=== PATIENT | female | born 1975 | race Caucasian/White ===

== ENCOUNTER 2017-10-14 09:02 | Emergency (ER) | payer MEDICAID ==
[~2017-10-14] VITALS: Ht 162.5 cm; Wt 90.7 kg
[~2017-10-14 09:02] MED LIST: AMOXICILLIN500 M3 PO; AMOXICILLIN500 MG PO; ATIVAN1 MG PO; CIPRO500 MG PO; CIPRODEX 0.3%-7.5 ML OT; CIPROFLOXACIN500 MG PO; CLARITIN10 MG PO; CLINDAMYCIN HC300 MG PO; FLONASE 0.05% 121 EA NAS; HYDROCODONE BIT1 T11 PO; IBU-8800 MG PO; KEFLEX500 MG PO; LEVAQUIN750 M1 PO; MEDROL DOSEPAK4 MG PO; MOTRIN OTC; MOTRIN800 MG PO; NAPROSYN500 MG PO; NKHM; NORCO 325 MG-101 TAB PO; NORCO 325 MG-51 TAB PO; NORCO 5-325 TA1 EACH PO; NORFLEX100 MG PO; ORASONE10 MG PO; PEN-VEE K500 MG PO; PENICILLIN VK500 MG PO; PROAIR RESPICL90 MCG INH; Peridex 473 ML473 ML PO; REGLAN10 MG PO; ROBITUSSIN AC 10 MG/ PO; TORADOL10 MG PO; TRAMADOL HCL50 MG PO; TRIMOX500 MG PO; ULTRAM50 MG PO; VICODIN 5/500 505 MG PO; VICODIN ES 7501 TAB PO; ZITHROMAX Z PA250 MG PO; ZOFRAN ODT4 MG SL; ZOFRAN4 MG PO; ZYRTEC10 MG PO
[2017-10-14 09:05] VITALS: BP 140/86
[2017-10-14] MEDS ORDERED: PENICILLIN VK500 MG PO (09:06)
[2017-10-14] MEDS ORDERED: Peridex 473 ML473 ML PO (09:06)
[2017-10-14] MEDS ORDERED: NAPROSYN500 MG PO (09:06)
== END 2017-10-14 09:10 | disposition home or self-care (01) ==
LOC: ED 09:02
DX: K08.89 Other specified disorders of teeth and supporting structures (principal); R03.0 Elevated blood-pressure reading, without diagnosis of hypertension; F17.200 Nicotine dependence, unspecified, uncomplicated; E66.9 Obesity, unspecified; Z90.49 Acquired absence of other specified parts of digestive tract; Z98.51 Tubal ligation status; Z68.39 Body mass index [BMI] 39.0-39.9, adult; Z79.899 Other long term (current) drug therapy

== ENCOUNTER 2017-11-06 09:38 | Emergency (ER) | payer MEDICAID ==
[~2017-11-06] VITALS: Ht 160 cm; Wt 86.2 kg
[2017-11-06 09:56] LABS: BILIRUBIN NEGATIVE (NEGATIVE); BLOOD 3+ (NEGATIVE); CLARITY CLOUDY (CLEAR); COLOR RED (YELLOW); GLUCOSE NEGATIVE (NEGATIVE); KETONE 2+ (NEGATIVE); NITRITE POSITIVE (NEGATIVE); PH 6.5 (5.0-9.0); SPECIFIC GRAVITY 1.025 (1.005-1.030)
[2017-11-06 10:13] LABS: LEUKO ESTERASE 1+ (NEGATIVE)
[2017-11-06 10:14] LABS: RBC TNTC rbc/hpf (0-2)
[2017-11-06 10:18] LABS: BASO # 0.1 10*3/uL (0.0-0.1); BASO % 0.4 % (0.0-1.0); EOS # 0.1 10*3/uL (0.0-0.4); EOS % 0.7 % (1.0-4.0); HEMATOCRIT 40.5 % (37.0-47.0); HEMOGLOBIN 13.7 g/dl (12.0-16.0); LYMPH # 2.8 10*3/uL (1.3-4.4); LYMPH % 20.4 % (27.0-41.0); MEAN CELL VOLUME 83.9 fl (81.0-99.0); MEAN CORPUSCULAR HGB 28.4 pg (27.0-31.0); MEAN CORPUSCULAR HGB CONC 33.8 g/dl (33.0-37.0); MEAN PLATELET VOLUME 9.9 fl (9.6-12.3); MONO # 0.8 10*3/uL (0.1-1.0); NEUT % 72.1 % (47.0-73.0); PLATELET COUNT AUTOMATED 305 10*3/uL (130-400); RED BLOOD COUNT 4.83 10*6/uL (4.10-5.10); RED CELL DISTRI WIDTH 13.7 % (0-14.5); WHITE BLOOD COUNT 13.8 10*3/uL (4.8-10.8)
[2017-11-06 10:33] LABS: ALBUMIN 3.7 gm/dl (3.1-4.5); ALKALINE PHOSPHATASE 89 U/L (45-117); BUN 15 mg/dl (7-24); CHLORIDE 108 mmol/L (98-107); CREATININE 0.99 mg/dL (0.55-1.02); LIPASE 119 U/L (73-393); POTASSIUM 3.7 mmol/L (3.5-5.1); SGOT/AST 9 IU/L (3-35); SGPT/ALT 17 U/L (12-78); SODIUM 140 mmol/L (136-145); TOTAL PROTEIN 7.2 gm/dL (6.4-8.2)
[2017-11-06 10:44] VITALS: BP 125/78
[2017-11-06] MEDS ORDERED: NORCO 5-325 TA1 EACH PO (12:56)
[2017-11-06] MEDS ORDERED: CIPRO500 MG PO (12:56)
== END 2017-11-06 13:21 | disposition home or self-care (01) ==
LOC: ED 09:38
PROVIDERS: Physician Assistant
DX: N13.1 Hydronephrosis with ureteral stricture, not elsewhere classified (principal); N23 Unspecified renal colic; F17.200 Nicotine dependence, unspecified, uncomplicated; Z98.51 Tubal ligation status

== ENCOUNTER 2018-01-13 12:37 | Emergency (ER) | payer MEDICAID ==
[~2018-01-13] VITALS: Ht 160 cm; Wt 87.1 kg
[2018-01-13 12:40] VITALS: BP 124/83
[2018-01-13 12:56] LABS: BILIRUBIN NEGATIVE (NEGATIVE); BLOOD 3+ (NEGATIVE); CLARITY CLEAR (CLEAR); COLOR YELLOW (YELLOW); GLUCOSE NEGATIVE (NEGATIVE); KETONE NEGATIVE (NEGATIVE); LEUKO ESTERASE NEGATIVE (NEGATIVE); NITRITE NEGATIVE (NEGATIVE); PH 5.5 (5.0-9.0); SPECIFIC GRAVITY <= 1.005 (1.005-1.030); UROBILINOGEN 0.2 E.U./dl (0.2-1.0)
[2018-01-13 13:07] LABS: BASO # 0.1 10*3/uL (0.0-0.1); BASO % 0.7 % (0.0-1.0); EOS # 0.2 10*3/uL (0.0-0.4); EOS % 2.1 % (1.0-4.0); HEMATOCRIT 41.7 % (37.0-47.0); HEMOGLOBIN 13.9 g/dl (12.0-16.0); LYMPH # 3.3 10*3/uL (1.3-4.4); LYMPH % 30.4 % (27.0-41.0); MEAN CELL VOLUME 85.1 fl (81.0-99.0); MEAN CORPUSCULAR HGB 28.4 pg (27.0-31.0); MEAN CORPUSCULAR HGB CONC 33.3 g/dl (33.0-37.0); MEAN PLATELET VOLUME 9.7 fl (9.6-12.3); MONO % 8.7 % (3.0-9.0); NEUT # 6.3 10*3/uL (2.3-7.9); NEUT % 57.8 % (47.0-73.0); PLATELET COUNT AUTOMATED 309 10*3/uL (130-400); RED CELL DISTRI WIDTH 14.1 % (0-14.5); WHITE BLOOD COUNT 10.9 10*3/uL (4.8-10.8)
[2018-01-13 13:21] LABS: ALBUMIN 3.9 gm/dl (3.1-4.5); ALKALINE PHOSPHATASE 91 U/L (45-117); BUN 13 mg/dl (7-24); CHLORIDE 107 mmol/L (98-107); CREATININE 0.95 mg/dL (0.55-1.02); LIPASE 255 U/L (73-393); SGOT/AST 9 IU/L (3-35); SGPT/ALT 15 U/L (12-78); SODIUM 137 mmol/L (136-145); TOTAL PROTEIN 7.8 gm/dL (6.4-8.2)
[2018-01-13] MEDS ORDERED: FLOMAX0.4 MG PO (13:42)
[2018-01-13] MEDS ORDERED: Motrin,Rufen800 MG PO (13:42)
== END 2018-01-13 13:46 | disposition home or self-care (01) ==
LOC: ED 12:37
PROVIDERS: Physician Assistant
DX: N13.30 Unspecified hydronephrosis (principal); F17.200 Nicotine dependence, unspecified, uncomplicated; Z87.442 Personal history of urinary calculi; Z90.49 Acquired absence of other specified parts of digestive tract; Z98.51 Tubal ligation status

== ENCOUNTER 2018-07-28 12:23 | Emergency (ER) | payer SELFPAY ==
[~2018-07-28] VITALS: Ht 160 cm; Wt 79.8 kg
[~2018-07-28 12:23] MED LIST changes: +FLOMAX0.4 MG PO; +Motrin,Rufen800 MG PO
[2018-07-28 12:24] VITALS: BP 127/83
[2018-07-28] MEDS ORDERED: NAPROSYN500 MG PO (12:28)
[2018-07-28] MEDS ORDERED: Peridex 473 ML473 ML PO (12:28)
[2018-07-28] MEDS ORDERED: PENICILLIN VK500 MG PO (12:28)
[2018-07-28] MEDS ORDERED: ZOFRAN4 MG PO (12:28)
[2018-08-26] MEDS ORDERED: PENICILLIN-VK500 MG PO (12:02)
[2018-08-26] MEDS ORDERED: NAPROSYN500 MG PO (12:02)
[2018-08-26] MEDS ORDERED: TYLENOL325 M1 PO (12:02)
== END 2018-07-28 12:40 | disposition home or self-care (01) ==
LOC: ED 12:23
DX: K02.9 Dental caries, unspecified (principal); R03.0 Elevated blood-pressure reading, without diagnosis of hypertension; E66.9 Obesity, unspecified; F17.200 Nicotine dependence, unspecified, uncomplicated; Z68.30 Body mass index [BMI] 30.0-30.9, adult; Z90.49 Acquired absence of other specified parts of digestive tract

== ENCOUNTER 2020-11-10 13:36 | Emergency (ER) | payer SELFPAY ==
[~2020-11-10] VITALS: Ht 162.5 cm; Wt 88.5 kg
[~2020-11-10 13:36] MED LIST changes: +PENICILLIN-VK500 MG PO; +TYLENOL325 M1 PO
[2020-11-10 14:21] LABS: BASO # 0.1 10*3/uL (0.0-0.1); EOS # 0.4 10*3/uL (0.0-0.4); EOS % 4.8 % (1.0-4.0); HEMATOCRIT 39.7 % (37.0-47.0); LYMPH # 3.4 10*3/uL (1.3-4.4); LYMPH % 36.2 % (27.0-41.0); MEAN CELL VOLUME 84.3 fl (81.0-99.0); MEAN CORPUSCULAR HGB 27.2 pg (27.0-31.0); MEAN CORPUSCULAR HGB CONC 32.2 g/dl (33.0-37.0); MEAN PLATELET VOLUME 9.9 fl (9.6-12.3); MONO # 0.7 10*3/uL (0.1-1.0); MONO % 7.9 % (3.0-9.0); NEUT # 4.6 10*3/uL (2.3-7.9); NEUT % 49.9 % (47.0-73.0); PLATELET COUNT AUTOMATED 387 10*3/uL (130-400); RED BLOOD COUNT 4.71 10*6/uL (4.10-5.10); RED CELL DISTRI WIDTH 14.3 % (0-14.5); WHITE BLOOD COUNT 9.3 10*3/uL (4.8-10.8)
[2020-11-10 14:37] LABS: ALBUMIN 3.5 gm/dl (3.1-4.5); ALKALINE PHOSPHATASE 99 U/L (45-117); BUN 12 mg/dl (7-24); CHLORIDE 108 mmol/L (98-107); LIPASE 95 U/L (73-393); POTASSIUM 3.9 mmol/L (3.5-5.1); SGOT/AST 9 IU/L (3-35); SGPT/ALT 15 U/L (12-78); SODIUM 139 mmol/L (136-145); TOTAL PROTEIN 7.5 gm/dL (6.4-8.2)
[2020-11-10 15:10] LABS: BILIRUBIN Negative (Negative); BLOOD 2+ (Negative); CLARITY Clear (Clear); COLOR Yellow (Yellow); GLUCOSE Negative (Negative); KETONE Negative (Negative); LEUKO ESTERASE Negative (Negative); NITRITE Negative (Negative); PH 7.5 (4.5-8.0)
[2020-11-10 15:23] LABS: BACTERIA TRACE
[2020-11-10 15:48] VITALS: BP 120/70
[2020-11-10] MEDS ORDERED: PYRIDIUM200 M1 PO (16:22)
[2020-11-10] MEDS ORDERED: SEPTDS PO (16:22)
== END 2020-11-10 16:21 | disposition home or self-care (01) ==
LOC: ED 13:36
PROVIDERS: Physician Assistant
DX: N39.0 Urinary tract infection, site not specified (principal); G43.909 Migraine, unspecified, not intractable, without status migrainosus; F17.200 Nicotine dependence, unspecified, uncomplicated; Z90.49 Acquired absence of other specified parts of digestive tract; Z98.51 Tubal ligation status; Z87.442 Personal history of urinary calculi

== ENCOUNTER 2020-12-04 09:47 | Emergency (ER) | payer SELFPAY ==
[~2020-12-04] VITALS: Wt 88.5 kg
[~2020-12-04 09:47] MED LIST changes: +PYRIDIUM200 M1 PO; +SEPTDS PO
[2020-12-04 10:28] LABS: BASO # 0.1 10*3/uL (0.0-0.1); BASO % 0.9 % (0.0-1.0); EOS # 0.6 10*3/uL (0.0-0.4); EOS % 5.1 % (1.0-4.0); HEMATOCRIT 38.3 % (37.0-47.0); LYMPH # 3.5 10*3/uL (1.3-4.4); LYMPH % 31.6 % (27.0-41.0); MEAN CELL VOLUME 84.4 fl (81.0-99.0); MEAN CORPUSCULAR HGB 27.5 pg (27.0-31.0); MEAN CORPUSCULAR HGB CONC 32.6 g/dl (33.0-37.0); MEAN PLATELET VOLUME 9.7 fl (9.6-12.3); MONO # 0.8 10*3/uL (0.1-1.0); MONO % 7.4 % (3.0-9.0); NEUT # 6.1 10*3/uL (2.3-7.9); NEUT % 54.8 % (47.0-73.0); PLATELET COUNT AUTOMATED 399 10*3/uL (130-400); RED BLOOD COUNT 4.54 10*6/uL (4.10-5.10); RED CELL DISTRI WIDTH 14.8 % (0-14.5)
[2020-12-04 10:36] VITALS: BP 128/73
[2020-12-04 10:39] LABS: BUN 13 mg/dl (7-24); CHLORIDE 108 mmol/L (98-107); CREATININE 0.72 mg/dL (0.55-1.02); POTASSIUM 3.8 mmol/L (3.5-5.1); SODIUM 140 mmol/L (136-145)
[2020-12-04 10:51] LABS: ACT PARTIAL THROMBO TIME 26.3 SECONDS (20.0-32.1); INTERNATIONAL NORM RATIO 0.9 (2.0-3.5)
[2020-12-04 11:16] LABS: BILIRUBIN Negative (Negative); BLOOD 2+ (Negative); CLARITY Clear (Clear); COLOR Yellow (Yellow); GLUCOSE Negative (Negative); KETONE Negative (Negative); LEUKO ESTERASE Negative (Negative); NITRITE Negative (Negative); SPECIFIC GRAVITY <= 1.005 (1.001-1.030); UROBILINOGEN 0.2 E.U./dl (0.0-1.0)
[2020-12-04 11:26] LABS: BACTERIA TRACE; RBC 0-2 rbc/hpf (0-2); WBC 0-2 wbc/hpf (0-5)
[2020-12-04] MEDS ORDERED: TYLENOL325 M1 PO (11:37)
[2020-12-04] MEDS ORDERED: NAPROSYN500 MG PO (11:37)
== END 2020-12-04 11:45 | disposition home or self-care (01) ==
LOC: ED 09:47
PROVIDERS: Emergency Medicine
DX: N93.8 Other specified abnormal uterine and vaginal bleeding (principal); G43.909 Migraine, unspecified, not intractable, without status migrainosus; F17.200 Nicotine dependence, unspecified, uncomplicated; Z79.899 Other long term (current) drug therapy; Z90.49 Acquired absence of other specified parts of digestive tract; Z98.51 Tubal ligation status

== ENCOUNTER → 2020-12-15 | Outpatient (CLI) | payer SELFPAY | END | disposition home or self-care (01) | LOC: US 10:00 | PROVIDERS: ATTEND Nurse Practitioner Women's Health | DX: M89.8X8 Other specified disorders of bone, other site (principal) ==

== ENCOUNTER 2021-04-12 18:03 | Inpatient (IN) | payer OTHER ==
[~2021-04-12] VITALS: Ht 160 cm; Wt 76.2 kg
[2021-04-12 18:13] VITALS: BP 128/77
[2021-04-12 18:28] LABS: BASO % 0.2 % (0.0-1.0); EOS # 0.2 10*3/uL (0.0-0.4); EOS % 3.6 % (1.0-4.0); HEMATOCRIT 37.6 % (37.0-47.0); LYMPH # 0.7 10*3/uL (1.3-4.4); LYMPH % 15.6 % (27.0-41.0); MEAN CELL VOLUME 83.2 fl (81.0-99.0); MEAN CORPUSCULAR HGB 28.3 pg (27.0-31.0); MEAN PLATELET VOLUME 9.2 fl (9.6-12.3); MONO # 0.5 10*3/uL (0.1-1.0); NEUT # 3.3 10*3/uL (2.3-7.9); NEUT % 70.4 % (47.0-73.0); PLATELET COUNT AUTOMATED 189 10*3/uL (130-400); RED BLOOD COUNT 4.52 10*6/uL (4.10-5.10); RED CELL DISTRI WIDTH 16.8 % (0-14.5); WHITE BLOOD COUNT 4.7 10*3/uL (4.8-10.8)
[2021-04-12 18:33] VITALS: BP 148/70
[2021-04-12 18:43] LABS: LIPASE 77 U/L (73-393)
[2021-04-12 18:44] LABS: ALBUMIN 3.4 gm/dl (3.1-4.5); ALKALINE PHOSPHATASE 80 U/L (45-117); BUN 15 mg/dl (7-24); CHLORIDE 103 mmol/L (98-107); CREATININE 0.57 mg/dL (0.55-1.02); POTASSIUM 3.7 mmol/L (3.5-5.1); SGOT/AST 15 IU/L (3-35); SGPT/ALT 26 U/L (12-78); SODIUM 131 mmol/L (136-145); TOTAL PROTEIN 7.1 gm/dL (6.4-8.2)
[2021-04-12 18:45] LABS: BETA-HCG, QUANT < 1.0 mIU/mL (1-3)
[2021-04-12 18:46] LABS: TROPONIN I < 0.015 ng/ml (<0.045)
[2021-04-13 02:24] VITALS: BP 114/86
[2021-04-13 02:35] VITALS: BP 134/66
[2021-04-13] MEDS ORDERED: Motrin,Rufen800 MG PO (02:57)
[2021-04-13] MEDS ORDERED: ZOFRAN4 MG PO (02:58)
[2021-04-13] MEDS ORDERED: OXYCODONE HCL10 M1 PO (02:58)
[2021-04-13 05:57] LABS: ALBUMIN 3.3 gm/dl (3.1-4.5); ALKALINE PHOSPHATASE 77 U/L (45-117); BUN 14 mg/dl (7-24); CHLORIDE 104 mmol/L (98-107); CREATININE 0.46 mg/dL (0.55-1.02); POTASSIUM 3.6 mmol/L (3.5-5.1); SGOT/AST 6 IU/L (3-35); SGPT/ALT 24 U/L (12-78); SODIUM 132 mmol/L (136-145); TOTAL PROTEIN 6.9 gm/dL (6.4-8.2)
[2021-04-13 06:07] LABS: BASO % 0.6 % (0.0-1.0); EOS # 0.2 10*3/uL (0.0-0.4); HEMATOCRIT 36.2 % (37.0-47.0); LYMPH # 0.8 10*3/uL (1.3-4.4); MEAN CELL VOLUME 86.2 fl (81.0-99.0); MEAN CORPUSCULAR HGB 28.6 pg (27.0-31.0); MEAN CORPUSCULAR HGB CONC 33.1 g/dl (33.0-37.0); MEAN PLATELET VOLUME 9.4 fl (9.6-12.3); MONO # 0.5 10*3/uL (0.1-1.0); NEUT # 3.5 10*3/uL (2.3-7.9); NEUT % 69.2 % (47.0-73.0); PLATELET COUNT AUTOMATED 180 10*3/uL (130-400); RED CELL DISTRI WIDTH 17.2 % (0-14.5)
[2021-04-13 08:00] VITALS: BP 111/69
[2021-04-13 12:00] VITALS: BP 128/73
[2021-04-13 16:00] VITALS: BP 106/68
[2021-04-13 20:00] VITALS: BP 124/70
[2021-04-14] VITALS: BP 112/73
[2021-04-14 08:00] VITALS: BP 112/74
[2021-04-14 12:00] VITALS: BP 109/68
[2021-04-14 16:00] VITALS: BP 100/60
[2021-04-14 20:00] VITALS: BP 113/74
[2021-04-15] VITALS: BP 105/56
[2021-04-15 05:43] LABS: BUN 12 mg/dl (7-24); CHLORIDE 106 mmol/L (98-107); CREATININE 0.46 mg/dL (0.55-1.02); POTASSIUM 3.9 mmol/L (3.5-5.1); SODIUM 137 mmol/L (136-145)
[2021-04-15 06:18] LABS: BASO % 1.1 % (0.0-1.0); EOS # 0.1 10*3/uL (0.0-0.4); EOS % 3.5 % (1.0-4.0); HEMATOCRIT 29.3 % (37.0-47.0); LYMPH # 0.6 10*3/uL (1.3-4.4); LYMPH % 16.3 % (27.0-41.0); MEAN CELL VOLUME 86.4 fl (81.0-99.0); MEAN CORPUSCULAR HGB 28.6 pg (27.0-31.0); MEAN CORPUSCULAR HGB CONC 33.1 g/dl (33.0-37.0); MEAN PLATELET VOLUME 9.7 fl (9.6-12.3); MONO # 0.5 10*3/uL (0.1-1.0); MONO % 13.6 % (3.0-9.0); NEUT # 2.4 10*3/uL (2.3-7.9); PLATELET COUNT AUTOMATED 141 10*3/uL (130-400); RED BLOOD COUNT 3.39 10*6/uL (4.10-5.10); WHITE BLOOD COUNT 3.7 10*3/uL (4.8-10.8)
[2021-04-15 08:00] VITALS: BP 116/69
[2021-04-15 12:00] VITALS: BP 103/42; BP 120/71
[2021-04-15] MEDS ORDERED: XARE15TA PO (20:41)
== END 2021-04-15 17:32 | disposition home or self-care (01) | DRG 134 ==
LOC: ED 18:03 → EDHOLD 04-13 01:11 → 4E 04-13 01:11
PROVIDERS: Emergency Medicine; ADMIT Internal Medicine; ATTEND Internal Medicine
DX: I26.93 Single subsegmental thrombotic pulmonary embolism without acute cor pulmonale (principal); N20.0 Calculus of kidney; N93.8 Other specified abnormal uterine and vaginal bleeding; C53.9 Malignant neoplasm of cervix uteri, unspecified; E66.9 Obesity, unspecified; Z90.49 Acquired absence of other specified parts of digestive tract; Z98.51 Tubal ligation status; Z83.3 Family history of diabetes mellitus; Z82.49 Family history of ischemic heart disease and other diseases of the circulatory system; Z80.1 Family history of malignant neoplasm of trachea, bronchus and lung; Z68.27 Body mass index [BMI] 27.0-27.9, adult; Z92.3 Personal history of irradiation

== ENCOUNTER → 2021-04-24 | Outpatient (CLI) | payer OTHER ==
[~2021-04-24] MED LIST changes: +OXYCODONE HCL10 M1 PO; +PREDNISONE20 M1 PO; +XARE15TA PO; +ZITHROMAX250 MG PO
[2021-04-24 11:18] LABS: BASO % 0.3 % (0.0-1.0); EOS # 0.2 10*3/uL (0.0-0.4); EOS % 4.1 % (1.0-4.0); HEMATOCRIT 33.5 % (37.0-47.0); LYMPH # 0.6 10*3/uL (1.3-4.4); LYMPH % 16.8 % (27.0-41.0); MEAN CELL VOLUME 88.2 fl (81.0-99.0); MEAN CORPUSCULAR HGB 28.9 pg (27.0-31.0); MEAN CORPUSCULAR HGB CONC 32.8 g/dl (33.0-37.0); MEAN PLATELET VOLUME 8.8 fl (9.6-12.3); MONO # 0.4 10*3/uL (0.1-1.0); MONO % 11.4 % (3.0-9.0); NEUT # 2.5 10*3/uL (2.3-7.9); NEUT % 67.1 % (47.0-73.0); PLATELET COUNT AUTOMATED 221 10*3/uL (130-400); RED CELL DISTRI WIDTH 20.8 % (0-14.5); WHITE BLOOD COUNT 3.7 10*3/uL (4.8-10.8)
[2021-04-24 11:43] LABS: ALBUMIN 3.2 gm/dl (3.1-4.5); ALKALINE PHOSPHATASE 93 U/L (45-117); BUN 9 mg/dl (7-24); CHLORIDE 107 mmol/L (98-107); SGOT/AST 6 IU/L (3-35); SGPT/ALT 13 U/L (12-78); SODIUM 137 mmol/L (136-145)
== END | disposition home or self-care (01) ==
LOC: LAB 10:55
PROVIDERS: ATTEND Internal Medicine Hematology & Oncology
DX: C53.9 Malignant neoplasm of cervix uteri, unspecified (principal); I26.99 Other pulmonary embolism without acute cor pulmonale; R51.9 Headache, unspecified

== ENCOUNTER 2021-05-07 13:39 | Inpatient (IN) | payer OTHER ==
[~2021-05-07] VITALS: Ht 160 cm; Wt 77.2 kg
[~2021-05-07 13:39] MED LIST changes: -PREDNISONE20 M1 PO; -ZITHROMAX250 MG PO
[2021-05-07 13:48] VITALS: BP 108/82
[2021-05-07 14:37] LABS: BILIRUBIN Negative (Negative); BLOOD Negative (Negative); CLARITY Cloudy (Clear); COLOR Yellow (Yellow); GLUCOSE Negative (Negative); KETONE Negative (Negative); LEUKO ESTERASE 2+ (Negative); NITRITE Negative (Negative); UROBILINOGEN 0.2 E.U./dl (0.0-1.0)
[2021-05-07 14:41] VITALS: BP 112/79
[2021-05-07 14:48] LABS: BASO # 0.1 10*3/uL (0.0-0.1); BASO % 0.9 % (0.0-1.0); EOS # 0.1 10*3/uL (0.0-0.4); EOS % 2.3 % (1.0-4.0); LYMPH # 0.8 10*3/uL (1.3-4.4); LYMPH % 14.4 % (27.0-41.0); MEAN CELL VOLUME 88.8 fl (81.0-99.0); MEAN CORPUSCULAR HGB 29.8 pg (27.0-31.0); MEAN CORPUSCULAR HGB CONC 33.5 g/dl (33.0-37.0); MEAN PLATELET VOLUME 8.8 fl (9.6-12.3); MONO # 0.8 10*3/uL (0.1-1.0); MONO % 13.6 % (3.0-9.0); NEUT # 3.8 10*3/uL (2.3-7.9); NEUT % 67.9 % (47.0-73.0); PLATELET COUNT AUTOMATED 344 10*3/uL (130-400); RED BLOOD COUNT 3.83 10*6/uL (4.10-5.10); RED CELL DISTRI WIDTH 21.7 % (0-14.5); WHITE BLOOD COUNT 5.6 10*3/uL (4.8-10.8)
[2021-05-07 15:01] LABS: BACTERIA 2+; WBC 31-40 wbc/hpf (0-5)
[2021-05-07 15:03] LABS: ALBUMIN 3.2 gm/dl (3.1-4.5); ALKALINE PHOSPHATASE 83 U/L (45-117); BUN 8 mg/dl (7-24); CHLORIDE 109 mmol/L (98-107); CREATININE 0.58 mg/dL (0.55-1.02); LIPASE 100 U/L (73-393); POTASSIUM 3.7 mmol/L (3.5-5.1); SGOT/AST 7 IU/L (3-35); SGPT/ALT 15 U/L (12-78); SODIUM 136 mmol/L (136-145)
[2021-05-07 15:07] LABS: TROPONIN I < 0.015 ng/ml (<0.045)
[2021-05-07 17:26] VITALS: BP 109/76
[2021-05-07 18:40] VITALS: BP 107/77
[2021-05-08] VITALS: BP 118/70
[2021-05-08 08:20] VITALS: BP 124/73
[2021-05-08 12:00] VITALS: BP 124/62
[2021-05-08 16:08] VITALS: BP 122/70
[2021-05-08 20:00] VITALS: BP 114/61
[2021-05-09] VITALS: BP 132/82
[2021-05-09 08:00] VITALS: BP 119/73
[2021-05-09 12:00] VITALS: BP 129/79
[2021-05-09 16:00] VITALS: BP 128/77
== END 2021-05-09 18:33 | disposition home or self-care (01) | DRG 463 ==
LOC: ED 13:39 → EDHOLD 17:36 → 4E 18:09
PROVIDERS: Internal Medicine; ADMIT Internal Medicine; ATTEND Internal Medicine
DX: N39.0 Urinary tract infection, site not specified (principal); G43.909 Migraine, unspecified, not intractable, without status migrainosus; C53.9 Malignant neoplasm of cervix uteri, unspecified; Z20.822 Contact with and (suspected) exposure to COVID-19; Z90.49 Acquired absence of other specified parts of digestive tract; Z98.51 Tubal ligation status; Z92.3 Personal history of irradiation; Z80.1 Family history of malignant neoplasm of trachea, bronchus and lung; Z83.3 Family history of diabetes mellitus; Z82.49 Family history of ischemic heart disease and other diseases of the circulatory system; Z86.16 Personal history of COVID-19; E66.9 Obesity, unspecified; Z68.30 Body mass index [BMI] 30.0-30.9, adult

== ENCOUNTER 2021-06-04 16:23 | Emergency (ER) | payer OTHER ==
[~2021-06-04] VITALS: Ht 160 cm; Wt 75.7 kg
[2021-06-04 16:37] VITALS: BP 124/74
[2021-06-04] MEDS ORDERED: ZITHROMAX250 MG PO (19:27)
[2021-06-04] MEDS ORDERED: PREDNISONE20 M1 PO (19:27)
== END 2021-06-04 20:16 | disposition home or self-care (01) ==
LOC: ED 16:23
DX: J40 Bronchitis, not specified as acute or chronic (principal); Z20.822 Contact with and (suspected) exposure to COVID-19; F17.200 Nicotine dependence, unspecified, uncomplicated

== ENCOUNTER 2021-08-16 21:07 | Emergency (ER) | payer OTHER ==
[~2021-08-16] VITALS: Ht 160 cm; Wt 78.5 kg
[~2021-08-16 21:07] MED LIST changes: +PREDNISONE20 M1 PO; +ZITHROMAX250 MG PO
[2021-08-16 21:09] VITALS: BP 116/84
[2021-08-16] MEDS ORDERED: NAPROXEN250 MG PO (22:36)
== END 2021-08-16 23:23 | disposition home or self-care (01) ==
LOC: ED 21:07
DX: R10.2 Pelvic and perineal pain (principal); M25.551 Pain in right hip; M54.50 Low back pain, unspecified; F17.200 Nicotine dependence, unspecified, uncomplicated

== ENCOUNTER 2021-08-25 16:13 | Emergency (ER) | payer OTHER ==
[~2021-08-25] VITALS: Ht 162.5 cm; Wt 78.5 kg
[~2021-08-25 16:13] MED LIST changes: +NAPROXEN250 MG PO
[2021-08-25 16:23] VITALS: BP 148/57
[2021-08-25 17:08] LABS: BASO # 0.1 10*3/uL (0.0-0.1); BASO % 0.6 % (0.0-1.0); EOS # 0.4 10*3/uL (0.0-0.4); EOS % 4.3 % (1.0-4.0); LYMPH # 1.4 10*3/uL (1.3-4.4); LYMPH % 13.8 % (27.0-41.0); MEAN CELL VOLUME 89.2 fl (81.0-99.0); MEAN CORPUSCULAR HGB 29.6 pg (27.0-31.0); MEAN CORPUSCULAR HGB CONC 33.2 g/dl (33.0-37.0); MEAN PLATELET VOLUME 9.3 fl (9.6-12.3); MONO # 0.8 10*3/uL (0.1-1.0); NEUT # 7.3 10*3/uL (2.3-7.9); PLATELET COUNT AUTOMATED 390 10*3/uL (130-400); RED BLOOD COUNT 4.15 10*6/uL (4.10-5.10); RED CELL DISTRI WIDTH 13.2 % (0-14.5); WHITE BLOOD COUNT 9.9 10*3/uL (4.8-10.8)
[2021-08-25 17:24] LABS: ALBUMIN 3.2 gm/dl (3.1-4.5); ALKALINE PHOSPHATASE 94 U/L (45-117); BUN 16 mg/dl (7-24); CHLORIDE 109 mmol/L (98-107); POTASSIUM 3.7 mmol/L (3.5-5.1); SGOT/AST 7 IU/L (3-35); SGPT/ALT 14 U/L (12-78); SODIUM 140 mmol/L (136-145); TOTAL PROTEIN 7.4 gm/dL (6.4-8.2)
[2021-08-25 17:26] LABS: B-hCG (QUALITATIVE) NEGATIVE (NEGATIVE)
== END 2021-08-25 19:38 | disposition home or self-care (01) ==
LOC: ED 16:13
PROVIDERS: Physician Assistant
DX: N93.8 Other specified abnormal uterine and vaginal bleeding (principal); Z85.41 Personal history of malignant neoplasm of cervix uteri; Z79.899 Other long term (current) drug therapy; Z90.49 Acquired absence of other specified parts of digestive tract; Z98.51 Tubal ligation status

== ENCOUNTER → 2021-09-25 | Outpatient (CLI) | payer OTHER | END | disposition home or self-care (01) | LOC: CT 10:45 | PROVIDERS: ATTEND Physician Assistant | DX: C53.9 Malignant neoplasm of cervix uteri, unspecified (principal); R10.2 Pelvic and perineal pain ==

== ENCOUNTER 2021-10-10 08:34 | Emergency (ER) | payer OTHER ==
[~2021-10-10] VITALS: Wt 78.5 kg
[2021-10-10 08:41] VITALS: BP 148/73
[2021-10-10 09:53] LABS: BASO # 0.1 10*3/uL (0.0-0.1); BASO % 0.9 % (0.0-1.0); EOS # 0.4 10*3/uL (0.0-0.4); EOS % 4.1 % (1.0-4.0); HEMATOCRIT 39.5 % (37.0-47.0); LYMPH # 1.3 10*3/uL (1.3-4.4); LYMPH % 12.7 % (27.0-41.0); MEAN CELL VOLUME 86.4 fl (81.0-99.0); MEAN CORPUSCULAR HGB 28.2 pg (27.0-31.0); MEAN CORPUSCULAR HGB CONC 32.7 g/dl (33.0-37.0); MEAN PLATELET VOLUME 9.3 fl (9.6-12.3); MONO # 0.7 10*3/uL (0.1-1.0); MONO % 6.9 % (3.0-9.0); NEUT # 7.7 10*3/uL (2.3-7.9); PLATELET COUNT AUTOMATED 477 10*3/uL (130-400); RED BLOOD COUNT 4.57 10*6/uL (4.10-5.10); RED CELL DISTRI WIDTH 15.9 % (0-14.5); WHITE BLOOD COUNT 10.3 10*3/uL (4.8-10.8)
[2021-10-10 09:55] LABS: BILIRUBIN Negative (Negative); BLOOD Negative (Negative); CLARITY Clear (Clear); COLOR Yellow (Yellow); GLUCOSE Negative (Negative); KETONE Negative (Negative); LEUKO ESTERASE 2+ (Negative); NITRITE Negative (Negative); UROBILINOGEN 0.2 E.U./dl (0.0-1.0)
[2021-10-10 10:02] LABS: BACTERIA 2+; MUCOUS 1+; WBC 21-30 wbc/hpf (0-5)
[2021-10-10 10:09] LABS: ALBUMIN 3.5 gm/dl (3.1-4.5); ALKALINE PHOSPHATASE 101 U/L (45-117); BUN 16 mg/dl (7-24); CHLORIDE 108 mmol/L (98-107); CREATININE 0.69 mg/dL (0.55-1.02); LIPASE 173 U/L (73-393); POTASSIUM 3.8 mmol/L (3.5-5.1); SGOT/AST 8 IU/L (3-35); SGPT/ALT 13 U/L (12-78); SODIUM 140 mmol/L (136-145)
== END 2021-10-10 16:14 | disposition home or self-care (01) ==
LOC: ED 08:34
PROVIDERS: Emergency Medicine
DX: K52.9 Noninfective gastroenteritis and colitis, unspecified (principal)

== ENCOUNTER 2021-10-31 11:47 | Emergency (ER) | payer OTHER ==
[~2021-10-31] VITALS: Ht 160 cm; Wt 74.8 kg
[2021-10-31 11:53] VITALS: BP 134/82
[2021-10-31] MEDS ORDERED: IBU800 M1 PO (12:07)
[2021-10-31 12:29] LABS: BASO # 0.1 10*3/uL (0.0-0.1); BASO % 0.6 % (0.0-1.0); EOS # 0.5 10*3/uL (0.0-0.4); EOS % 4.5 % (1.0-4.0); HEMATOCRIT 37.5 % (37.0-47.0); LYMPH # 1.2 10*3/uL (1.3-4.4); MEAN CORPUSCULAR HGB 27.7 pg (27.0-31.0); MEAN CORPUSCULAR HGB CONC 33.3 g/dl (33.0-37.0); MEAN PLATELET VOLUME 9.1 fl (9.6-12.3); MONO # 0.7 10*3/uL (0.1-1.0); MONO % 6.4 % (3.0-9.0); NEUT # 7.9 10*3/uL (2.3-7.9); NEUT % 76.2 % (47.0-73.0); PLATELET COUNT AUTOMATED 440 10*3/uL (130-400); RED BLOOD COUNT 4.52 10*6/uL (4.10-5.10); RED CELL DISTRI WIDTH 15.7 % (0-14.5); WHITE BLOOD COUNT 10.4 10*3/uL (4.8-10.8)
[2021-10-31 12:45] LABS: ALBUMIN 3.2 gm/dl (3.1-4.5); ALKALINE PHOSPHATASE 88 U/L (45-117); BUN 12 mg/dl (7-24); CHLORIDE 109 mmol/L (98-107); CREATININE 0.59 mg/dL (0.55-1.02); LIPASE 58 U/L (73-393); POTASSIUM 3.8 mmol/L (3.5-5.1); SGOT/AST 5 IU/L (3-35); SGPT/ALT 12 U/L (12-78); SODIUM 138 mmol/L (136-145); TOTAL PROTEIN 7.5 gm/dL (6.4-8.2)
[2021-10-31 13:32] LABS: BILIRUBIN Negative (Negative); BLOOD Negative (Negative); CLARITY Cloudy (Clear); COLOR Yellow (Yellow); GLUCOSE Negative (Negative); KETONE Trace (Negative); LEUKO ESTERASE 1+ (Negative); NITRITE Negative (Negative); PH 7.5 (4.5-8.0); SPECIFIC GRAVITY 1.015 (1.001-1.030); UROBILINOGEN 0.2 E.U./dl (0.0-1.0)
[2021-10-31 13:47] LABS: BACTERIA 2+; MUCOUS 1+
[2021-10-31] MEDS ORDERED: CIPRO500 MG PO (13:58)
[2021-10-31] MEDS ORDERED: METRONIDAZOLE500 M1 PO (13:58)
[2021-10-31] MEDS ORDERED: HYDROCODONE-AC1 EAC1 PO (13:58)
== END 2021-10-31 14:08 | disposition home or self-care (01) ==
LOC: ED 11:47
PROVIDERS: Physician Assistant
DX: R10.32 Left lower quadrant pain (principal); F17.200 Nicotine dependence, unspecified, uncomplicated; Z90.49 Acquired absence of other specified parts of digestive tract; Z98.51 Tubal ligation status

== ENCOUNTER 2021-11-22 21:21 | Emergency (ER) | payer OTHER ==
[~2021-11-22] VITALS: Ht 162.5 cm; Wt 65.8 kg
[~2021-11-22 21:21] MED LIST changes: +HYDROCODONE-AC1 EAC1 PO; +IBU800 M1 PO; +METRONIDAZOLE500 M1 PO
[2021-11-22 21:26] VITALS: BP 113/64
[2021-11-22 21:38] LABS: BASO % 0.3 % (0.0-1.0); EOS # 0.3 10*3/uL (0.0-0.4); EOS % 3.8 % (1.0-4.0); HEMATOCRIT 35.9 % (37.0-47.0); LYMPH % 11.1 % (27.0-41.0); MEAN CELL VOLUME 85.7 fl (81.0-99.0); MEAN CORPUSCULAR HGB 27.7 pg (27.0-31.0); MEAN CORPUSCULAR HGB CONC 32.3 g/dl (33.0-37.0); MONO # 0.6 10*3/uL (0.1-1.0); MONO % 6.8 % (3.0-9.0); NEUT # 6.7 10*3/uL (2.3-7.9); NEUT % 77.8 % (47.0-73.0); PLATELET COUNT AUTOMATED 271 10*3/uL (130-400); RED BLOOD COUNT 4.19 10*6/uL (4.10-5.10); RED CELL DISTRI WIDTH 16.8 % (0-14.5); WHITE BLOOD COUNT 8.6 10*3/uL (4.8-10.8)
[2021-11-22 21:54] LABS: ALBUMIN 2.9 gm/dl (3.1-4.5); ALKALINE PHOSPHATASE 91 U/L (45-117); BUN 15 mg/dl (7-24); CHLORIDE 106 mmol/L (98-107); CREATININE 0.65 mg/dL (0.55-1.02); LIPASE 47 U/L (73-393); POTASSIUM 3.6 mmol/L (3.5-5.1); SGOT/AST 7 IU/L (3-35); SGPT/ALT 13 U/L (12-78); SODIUM 137 mmol/L (136-145); TOTAL PROTEIN 6.9 gm/dL (6.4-8.2)
[2021-11-22] MEDS ORDERED: CIPRO500 MG PO (22:21)
[2021-11-22] MEDS ORDERED: METRONIDAZOLE500 M1 PO (22:21)
== END 2021-11-22 22:44 | disposition home or self-care (01) ==
LOC: ED 21:21
PROVIDERS: Internal Medicine
DX: K52.9 Noninfective gastroenteritis and colitis, unspecified (principal); E44.1 Mild protein-calorie malnutrition; F17.200 Nicotine dependence, unspecified, uncomplicated; Z90.49 Acquired absence of other specified parts of digestive tract; Z98.51 Tubal ligation status

== ENCOUNTER 2021-12-06 04:19 | Emergency (ER) | payer OTHER ==
[~2021-12-06] VITALS: Wt 68.0 kg
[2021-12-06 04:25] VITALS: BP 122/77
[2021-12-06 06:03] LABS: BASO % 0.3 % (0.0-1.0); EOS # 0.3 10*3/uL (0.0-0.4); EOS % 2.3 % (1.0-4.0); HEMATOCRIT 36.8 % (37.0-47.0); LYMPH # 0.9 10*3/uL (1.3-4.4); LYMPH % 6.8 % (27.0-41.0); MEAN CELL VOLUME 84.6 fl (81.0-99.0); MEAN CORPUSCULAR HGB 28.3 pg (27.0-31.0); MEAN CORPUSCULAR HGB CONC 33.4 g/dl (33.0-37.0); MEAN PLATELET VOLUME 9.3 fl (9.6-12.3); MONO # 1.2 10*3/uL (0.1-1.0); MONO % 9.5 % (3.0-9.0); NEUT # 10.1 10*3/uL (2.3-7.9); NEUT % 79.9 % (47.0-73.0); PLATELET COUNT AUTOMATED 410 10*3/uL (130-400); RED BLOOD COUNT 4.35 10*6/uL (4.10-5.10); RED CELL DISTRI WIDTH 15.6 % (0-14.5); WHITE BLOOD COUNT 12.6 10*3/uL (4.8-10.8)
[2021-12-06 06:05] LABS: ALKALINE PHOSPHATASE 90 U/L (45-117); BUN 13 mg/dl (7-24); CHLORIDE 106 mmol/L (98-107); CREATININE 0.48 mg/dL (0.55-1.02); POTASSIUM 3.6 mmol/L (3.5-5.1); SGOT/AST 8 IU/L (3-35); SGPT/ALT 12 U/L (12-78); SODIUM 137 mmol/L (136-145); TOTAL PROTEIN 7.2 gm/dL (6.4-8.2)
[2021-12-06 07:14] LABS: BILIRUBIN Negative (Negative); BLOOD 3+ (Negative); CLARITY Turbid (Clear); COLOR Dark Yellow (Yellow); GLUCOSE Negative (Negative); KETONE 2+ (Negative); LEUKO ESTERASE 3+ (Negative); NITRITE Negative (Negative); PH 6.5 (4.5-8.0); SPECIFIC GRAVITY 1.015 (1.001-1.030)
[2021-12-06 07:35] LABS: EPITHELIAL CELLS 16-20; RBC 16-20 rbc/hpf (0-2)
[2021-12-06 07:36] LABS: BACTERIA 4+; MUCOUS 1+
== END 2021-12-06 08:15 | disposition short-term general hospital (02) ==
LOC: ED 04:19
PROVIDERS: Emergency Medicine
DX: N82.3 Fistula of vagina to large intestine (principal); E66.9 Obesity, unspecified; F17.200 Nicotine dependence, unspecified, uncomplicated; Z90.49 Acquired absence of other specified parts of digestive tract; Z98.51 Tubal ligation status

== ENCOUNTER → 2021-12-17 | Outpatient (CLI) | payer OTHER | LOC: WOUNDCARE 01:30 | PROVIDERS: ATTEND Nurse Practitioner Family | DX: L59.8 Other specified disorders of the skin and subcutaneous tissue related to radiation (principal); N82.9 Female genital tract fistula, unspecified; F17.200 Nicotine dependence, unspecified, uncomplicated; Z92.3 Personal history of irradiation; Z71.6 Tobacco abuse counseling; Z86.711 Personal history of pulmonary embolism; Z85.41 Personal history of malignant neoplasm of cervix uteri; Y84.2 Radiological procedure and radiotherapy as the cause of abnormal reaction of the patient, or of later complication, without mention of misadventure at the time of the procedure ==

== ENCOUNTER → 2021-12-24 | Outpatient (CLI) | payer OTHER | LOC: WOUNDCARE 01:36 | PROVIDERS: ATTEND Nurse Practitioner Family | DX: L59.8 Other specified disorders of the skin and subcutaneous tissue related to radiation (principal); N82.9 Female genital tract fistula, unspecified; F17.200 Nicotine dependence, unspecified, uncomplicated; Z71.6 Tobacco abuse counseling; Z71.89 Other specified counseling; Z86.711 Personal history of pulmonary embolism; Z85.41 Personal history of malignant neoplasm of cervix uteri; Y84.2 Radiological procedure and radiotherapy as the cause of abnormal reaction of the patient, or of later complication, without mention of misadventure at the time of the procedure ==

== ENCOUNTER → 2021-12-25 | Outpatient (CLI) | payer OTHER | END | disposition home or self-care (01) | LOC: MRI 12-16 10:00 | PROVIDERS: ATTEND Obstetrics & Gynecology | DX: L59.8 Other specified disorders of the skin and subcutaneous tissue related to radiation (principal); M51.34 Other intervertebral disc degeneration, thoracic region; Z72.0 Tobacco use ==

== ENCOUNTER → 2021-12-29 | Outpatient (CLI) | payer OTHER | LOC: WOUNDCARE 00:49 | PROVIDERS: ATTEND Internal Medicine | DX: L59.8 Other specified disorders of the skin and subcutaneous tissue related to radiation (principal); N82.9 Female genital tract fistula, unspecified; F17.200 Nicotine dependence, unspecified, uncomplicated; Z71.6 Tobacco abuse counseling; Z71.89 Other specified counseling; Z86.711 Personal history of pulmonary embolism; Z85.41 Personal history of malignant neoplasm of cervix uteri; Y84.2 Radiological procedure and radiotherapy as the cause of abnormal reaction of the patient, or of later complication, without mention of misadventure at the time of the procedure ==

== ENCOUNTER → 2021-12-31 | Outpatient (CLI) | payer OTHER | LOC: WOUNDCARE 02:40 | PROVIDERS: ATTEND Nurse Practitioner Family | DX: L59.8 Other specified disorders of the skin and subcutaneous tissue related to radiation (principal); N82.9 Female genital tract fistula, unspecified; F17.200 Nicotine dependence, unspecified, uncomplicated; Z71.6 Tobacco abuse counseling; Z71.89 Other specified counseling; Z86.711 Personal history of pulmonary embolism; Z85.41 Personal history of malignant neoplasm of cervix uteri; Y84.2 Radiological procedure and radiotherapy as the cause of abnormal reaction of the patient, or of later complication, without mention of misadventure at the time of the procedure ==

== ENCOUNTER → 2022-01-04 | Outpatient (CLI) | payer OTHER | LOC: WOUNDCARE 00:50 | PROVIDERS: ATTEND Nurse Practitioner Family | DX: L59.8 Other specified disorders of the skin and subcutaneous tissue related to radiation (principal); N82.9 Female genital tract fistula, unspecified; F17.200 Nicotine dependence, unspecified, uncomplicated; Z71.6 Tobacco abuse counseling; Z71.89 Other specified counseling; Z86.711 Personal history of pulmonary embolism; Z85.41 Personal history of malignant neoplasm of cervix uteri; Y84.2 Radiological procedure and radiotherapy as the cause of abnormal reaction of the patient, or of later complication, without mention of misadventure at the time of the procedure ==

== ENCOUNTER → 2022-01-11 | Outpatient (CLI) | payer OTHER | END | disposition home or self-care (01) | LOC: WOUNDCARE 00:59 | PROVIDERS: ATTEND Nurse Practitioner Family | DX: L59.8 Other specified disorders of the skin and subcutaneous tissue related to radiation (principal); M87.88 Other osteonecrosis, other site; N82.9 Female genital tract fistula, unspecified; Z92.3 Personal history of irradiation; Z71.6 Tobacco abuse counseling; Z71.89 Other specified counseling; F17.200 Nicotine dependence, unspecified, uncomplicated; Z85.41 Personal history of malignant neoplasm of cervix uteri; Z86.711 Personal history of pulmonary embolism; Y84.2 Radiological procedure and radiotherapy as the cause of abnormal reaction of the patient, or of later complication, without mention of misadventure at the time of the procedure ==

== ENCOUNTER → 2022-01-19 | Outpatient (CLI) | payer OTHER | LOC: WOUNDCARE 00:46 | PROVIDERS: ATTEND Internal Medicine | DX: L59.8 Other specified disorders of the skin and subcutaneous tissue related to radiation (principal); M87.88 Other osteonecrosis, other site; N82.9 Female genital tract fistula, unspecified; F17.200 Nicotine dependence, unspecified, uncomplicated; Z92.3 Personal history of irradiation; Z71.6 Tobacco abuse counseling; Z71.89 Other specified counseling; Z85.41 Personal history of malignant neoplasm of cervix uteri; Z86.711 Personal history of pulmonary embolism; Y84.2 Radiological procedure and radiotherapy as the cause of abnormal reaction of the patient, or of later complication, without mention of misadventure at the time of the procedure ==

== ENCOUNTER → 2022-01-20 | Outpatient (CLI) | payer OTHER | END | disposition home or self-care (01) | LOC: WOUNDCARE 01:56 | PROVIDERS: ATTEND Nurse Practitioner Family | DX: L59.8 Other specified disorders of the skin and subcutaneous tissue related to radiation (principal); M87.88 Other osteonecrosis, other site; N82.9 Female genital tract fistula, unspecified; F17.200 Nicotine dependence, unspecified, uncomplicated; Z92.3 Personal history of irradiation; Z71.6 Tobacco abuse counseling; Z85.41 Personal history of malignant neoplasm of cervix uteri; Z71.89 Other specified counseling; Z86.711 Personal history of pulmonary embolism; Y84.2 Radiological procedure and radiotherapy as the cause of abnormal reaction of the patient, or of later complication, without mention of misadventure at the time of the procedure ==

== ENCOUNTER 2022-03-28 20:13 | Emergency (ER) | payer OTHER ==
[2022-03-28 20:18] VITALS: BP 135/89
[2022-03-28 20:23] LABS: BASO # 0.1 10*3/uL (0.0-0.1); BASO % 1.4 % (0.0-1.0); EOS # 0.4 10*3/uL (0.0-0.4); EOS % 5.3 % (1.0-4.0); LYMPH # 1.5 10*3/uL (1.3-4.4); LYMPH % 19.3 % (27.0-41.0); MEAN CELL VOLUME 85.3 fl (81.0-99.0); MEAN CORPUSCULAR HGB 28.2 pg (27.0-31.0); MEAN CORPUSCULAR HGB CONC 33.1 g/dl (33.0-37.0); MEAN PLATELET VOLUME 8.9 fl (9.6-12.3); MONO # 0.6 10*3/uL (0.1-1.0); MONO % 7.1 % (3.0-9.0); NEUT # 5.3 10*3/uL (2.3-7.9); NEUT % 66.6 % (47.0-73.0); PLATELET COUNT AUTOMATED 360 10*3/uL (130-400); RED BLOOD COUNT 4.22 10*6/uL (4.10-5.10); WHITE BLOOD COUNT 7.9 10*3/uL (4.8-10.8)
[2022-03-28 20:42] LABS: ALKALINE PHOSPHATASE 87 U/L (45-117); BUN 13 mg/dl (7-24); CHLORIDE 109 mmol/L (98-107); CREATININE 0.63 mg/dL (0.55-1.02); LIPASE 111 U/L (73-393); POTASSIUM 3.2 mmol/L (3.5-5.1); SGOT/AST 5 IU/L (3-35); SGPT/ALT < 6 U/L (12-78); SODIUM 141 mmol/L (136-145); TOTAL PROTEIN 6.7 gm/dL (6.4-8.2)
[2022-03-28 20:58] LABS: BILIRUBIN Negative (Negative); BLOOD Trace-Lysed (Negative); CLARITY Clear (Clear); COLOR Yellow (Yellow); GLUCOSE Negative (Negative); KETONE Negative (Negative); LEUKO ESTERASE 2+ (Negative); NITRITE Negative (Negative); SPECIFIC GRAVITY <= 1.005 (1.001-1.030); UROBILINOGEN 0.2 E.U./dl (0.0-1.0)
[2022-03-28 21:06] LABS: BACTERIA 1+; MUCOUS 1+; WBC 16-20 wbc/hpf (0-5)
[2022-03-29] MEDS ORDERED: METRONIDAZOLE500 M1 PO (00:18)
[2022-03-29] MEDS ORDERED: CIPRO500 MG PO (00:18)
== END 2022-03-29 00:55 | disposition home or self-care (01) ==
LOC: ED 20:13
PROVIDERS: Internal Medicine
DX: N30.90 Cystitis, unspecified without hematuria (principal); K52.9 Noninfective gastroenteritis and colitis, unspecified; E87.6 Hypokalemia; E44.0 Moderate protein-calorie malnutrition; Z90.49 Acquired absence of other specified parts of digestive tract; Z98.51 Tubal ligation status

== ENCOUNTER 2022-04-01 07:14 | Emergency (ER) | payer OTHER ==
[~2022-04-01] VITALS: Ht 160 cm; Wt 57.6 kg
[2022-04-01 08:54] LABS: BASO # 0.1 10*3/uL (0.0-0.1); BASO % 1.3 % (0.0-1.0); EOS # 0.7 10*3/uL (0.0-0.4); EOS % 9.9 % (1.0-4.0); HEMATOCRIT 37.4 % (37.0-47.0); LYMPH # 1.5 10*3/uL (1.3-4.4); LYMPH % 21.5 % (27.0-41.0); MEAN CELL VOLUME 87.4 fl (81.0-99.0); MEAN CORPUSCULAR HGB 27.8 pg (27.0-31.0); MEAN CORPUSCULAR HGB CONC 31.8 g/dl (33.0-37.0); MEAN PLATELET VOLUME 8.7 fl (9.6-12.3); MONO # 0.6 10*3/uL (0.1-1.0); MONO % 8.6 % (3.0-9.0); NEUT # 3.9 10*3/uL (2.3-7.9); NEUT % 58.4 % (47.0-73.0); PLATELET COUNT AUTOMATED 336 10*3/uL (130-400); RED BLOOD COUNT 4.28 10*6/uL (4.10-5.10); RED CELL DISTRI WIDTH 17.5 % (0-14.5); WHITE BLOOD COUNT 6.8 10*3/uL (4.8-10.8)
[2022-04-01 09:07] LABS: ACT PARTIAL THROMBO TIME 35.3 SECONDS (20.0-32.1); ALKALINE PHOSPHATASE 76 U/L (45-117); BUN 10 mg/dl (7-24); CHLORIDE 113 mmol/L (98-107); CREATININE 0.73 mg/dL (0.55-1.02); INTERNATIONAL NORM RATIO 1.2 (2.0-3.5); LIPASE 133 U/L (73-393); POTASSIUM 3.4 mmol/L (3.5-5.1); SGOT/AST 8 IU/L (3-35); SODIUM 144 mmol/L (136-145); TOTAL PROTEIN 6.7 gm/dL (6.4-8.2)
[2022-04-01 09:19] LABS: SGPT/ALT < 6 U/L (12-78)
[2022-04-01 09:20] LABS: BETA-HCG, QUANT < 1.0 mIU/mL (1-3)
[2022-04-01 14:27] VITALS: BP 119/89
== END 2022-04-01 15:54 | disposition short-term general hospital (02) ==
LOC: ED 07:14
PROVIDERS: Emergency Medicine
DX: K92.2 Gastrointestinal hemorrhage, unspecified (principal); Z90.49 Acquired absence of other specified parts of digestive tract; Z98.51 Tubal ligation status

== ENCOUNTER 2022-05-10 21:32 | Emergency (ER) | payer OTHER ==
[~2022-05-10] VITALS: Ht 167.6 cm; Wt 65.8 kg
[2022-05-10] MEDS ORDERED: DICYCLOMINE HCL10 MG PO (21:35)
[2022-05-10] MEDS ORDERED: NEURONTIN300 MG PO (21:36)
[2022-05-10] MEDS ORDERED: XARE20MG PO (21:36)
[2022-05-10] MEDS ORDERED: OXYCODONE HCL5 MG PO (21:37)
[2022-05-10] MEDS ORDERED: ACETAMINOPHEN500 M4 PO (21:37)
[2022-05-10 21:38] VITALS: BP 124/86
[2022-05-10] MEDS ORDERED: DOCUSATE SOD100 MG PO (21:38)
[2022-05-10 22:36] LABS: BASO # 0.1 10*3/uL (0.0-0.1); BASO % 1.1 % (0.0-1.0); EOS # 0.4 10*3/uL (0.0-0.4); EOS % 5.6 % (1.0-4.0); HEMATOCRIT 40.3 % (37.0-47.0); LYMPH # 1.9 10*3/uL (1.3-4.4); LYMPH % 28.6 % (27.0-41.0); MEAN CELL VOLUME 86.7 fl (81.0-99.0); MEAN CORPUSCULAR HGB CONC 33.5 g/dl (33.0-37.0); MEAN PLATELET VOLUME 8.8 fl (9.6-12.3); MONO # 0.5 10*3/uL (0.1-1.0); MONO % 7.7 % (3.0-9.0); NEUT # 3.8 10*3/uL (2.3-7.9); NEUT % 56.8 % (47.0-73.0); PLATELET COUNT AUTOMATED 398 10*3/uL (130-400); RED BLOOD COUNT 4.65 10*6/uL (4.10-5.10); RED CELL DISTRI WIDTH 15.5 % (0-14.5); WHITE BLOOD COUNT 6.6 10*3/uL (4.8-10.8)
[2022-05-10 22:51] LABS: ALKALINE PHOSPHATASE 97 U/L (45-117); BUN 14 mg/dl (7-24); CHLORIDE 108 mmol/L (98-107); CREATININE 0.63 mg/dL (0.55-1.02); POTASSIUM 3.8 mmol/L (3.5-5.1); SGOT/AST 7 IU/L (3-35); SGPT/ALT 10 U/L (12-78); SODIUM 139 mmol/L (136-145); TOTAL PROTEIN 7.4 gm/dL (6.4-8.2)
[2022-05-10 23:51] LABS: BILIRUBIN Negative (Negative); BLOOD Trace-Intact (Negative); CLARITY Clear (Clear); COLOR Yellow (Yellow); GLUCOSE Negative (Negative); KETONE Negative (Negative); LEUKO ESTERASE 3+ (Negative); NITRITE Negative (Negative); SPECIFIC GRAVITY <= 1.005 (1.001-1.030); UROBILINOGEN 0.2 E.U./dl (0.0-1.0)
[2022-05-11 00:01] LABS: WBC 41-50 wbc/hpf (0-5)
[2022-05-11] MEDS ORDERED: CIPRO500 MG PO (00:32)
== END 2022-05-11 01:00 | disposition home or self-care (01) ==
LOC: ED 21:32
PROVIDERS: Internal Medicine
DX: N39.0 Urinary tract infection, site not specified (principal); Z79.899 Other long term (current) drug therapy; Z90.49 Acquired absence of other specified parts of digestive tract; Z98.51 Tubal ligation status; Z87.891 Personal history of nicotine dependence

== ENCOUNTER → 2022-07-20 | Outpatient (CLI) | payer OTHER ==
[~2022-07-20] MED LIST changes: +ACETAMINOPHEN500 M4 PO; +DICYCLOMINE HCL10 MG PO; +DOCUSATE SOD100 MG PO; +NEURONTIN300 MG PO; +OXYCODONE HCL5 MG PO; +XARE20MG PO
[2022-07-20 12:35] LABS: CHLORIDE 111 mmol/L (98-107); CREATININE 0.58 mg/dL (0.55-1.02); POTASSIUM 4.1 mmol/L (3.5-5.1); SGOT/AST 7 IU/L (3-35); SGPT/ALT 11 U/L (12-78); SODIUM 142 mmol/L (136-145)
[2022-07-20 12:59] LABS: ALKALINE PHOSPHATASE 88 U/L (45-117); BUN 16 mg/dl (7-24); TOTAL PROTEIN 7.1 gm/dL (6.4-8.2)
== END | disposition home or self-care (01) ==
LOC: LAB 11:34
DX: C53.9 Malignant neoplasm of cervix uteri, unspecified (principal)

== ENCOUNTER 2022-08-14 23:00 | Emergency (ER) | payer OTHER ==
[~2022-08-14] VITALS: Ht 167.6 cm; Wt 72.6 kg
[2022-08-14 23:09] VITALS: BP 110/68
== END 2022-08-14 23:30 | disposition left against medical advice (07) ==
LOC: ED 23:00
DX: N93.8 Other specified abnormal uterine and vaginal bleeding (principal); F17.200 Nicotine dependence, unspecified, uncomplicated; Z79.899 Other long term (current) drug therapy; Z90.49 Acquired absence of other specified parts of digestive tract; Z98.51 Tubal ligation status

== ENCOUNTER → 2022-08-23 | Outpatient (CLI) | payer OTHER | LOC: CT 11:00 | PROVIDERS: ATTEND Nurse Practitioner Primary Care | DX: C53.9 Malignant neoplasm of cervix uteri, unspecified (principal); K76.0 Fatty (change of) liver, not elsewhere classified; N32.89 Other specified disorders of bladder; R59.9 Enlarged lymph nodes, unspecified; I77.9 Disorder of arteries and arterioles, unspecified; K76.89 Other specified diseases of liver ==

== ENCOUNTER 2022-11-26 10:35 | Emergency (ER) | payer OTHER ==
[~2022-11-26] VITALS: Ht 160 cm; Wt 59.0 kg
[2022-11-26 10:38] VITALS: BP 117/68
[2022-11-26] MEDS ORDERED: PENICILLIN-VK500 MG PO (10:51)
== END 2022-11-26 10:51 | disposition home or self-care (01) ==
LOC: ED 10:35
DX: K08.89 Other specified disorders of teeth and supporting structures (principal); Z79.899 Other long term (current) drug therapy; Z90.49 Acquired absence of other specified parts of digestive tract; Z98.51 Tubal ligation status; F17.200 Nicotine dependence, unspecified, uncomplicated

== ENCOUNTER 2022-12-18 04:48 | Emergency (ER) | payer OTHER ==
[~2022-12-18] VITALS: Ht 160 cm; Wt 56.7 kg
[2022-12-18] MEDS ORDERED: KEFLEX 500 MG E2 CAP PO (05:30)
[2022-12-18] MEDS ORDERED: OXYCODONE HCL10 M1 PO (05:30)
[2022-12-18 05:31] LABS: ALKALINE PHOSPHATASE 102 U/L (46-116); BUN 20 mg/dl (9-23); CHLORIDE 104 mmol/L (98-107); LIPASE 30 U/L (12-53); POTASSIUM 3.4 mmol/L (3.4-5.1); SGPT/ALT 7 U/L (10-49); TOTAL PROTEIN 7.3 gm/dL (6.0-8.0)
[2022-12-18] MEDS ORDERED: DULOXETINE HCL30 MG PO (05:31)
[2022-12-18] MEDS ORDERED: NEURONTIN300 MG PO (05:31)
[2022-12-18] MEDS ORDERED: MYRBETRIQ50 M1 PO (05:31)
[2022-12-18 05:58] LABS: BASO # 0.1 10*3/uL (0.0-0.1); BASO % 0.7 % (0.0-1.0); EOS % 10.8 % (1.0-4.0); HEMATOCRIT 39.3 % (37.0-47.0); LYMPH # 1.5 10*3/uL (1.3-4.4); LYMPH % 17.5 % (27.0-41.0); MEAN CELL VOLUME 83.1 fl (81.0-99.0); MEAN CORPUSCULAR HGB 27.7 pg (27.0-31.0); MEAN CORPUSCULAR HGB CONC 33.3 g/dl (33.0-37.0); MEAN PLATELET VOLUME 8.9 fl (9.6-12.3); MONO # 0.7 10*3/uL (0.1-1.0); MONO % 8.4 % (3.0-9.0); NEUT # 5.4 10*3/uL (2.3-7.9); NEUT % 61.1 % (47.0-73.0); PLATELET COUNT AUTOMATED 489 10*3/uL (130-400); RED BLOOD COUNT 4.73 10*6/uL (4.10-5.10); RED CELL DISTRI WIDTH 14.6 % (0-14.5); WHITE BLOOD COUNT 8.8 10*3/uL (4.8-10.8)
[2022-12-18 06:27] LABS: BILIRUBIN 1+ (Negative); BLOOD 3+ (Negative); CLARITY Cloudy (Clear); GLUCOSE Negative (Negative); KETONE Negative (Negative); LEUKO ESTERASE 2+ (Negative); NITRITE Negative (Negative); PH 5.5 (4.5-8.0); SPECIFIC GRAVITY >= 1.030 (1.001-1.030); UROBILINOGEN 0.2 E.U./dl (0.0-1.0)
[2022-12-18 06:30] LABS: COLOR Red (Yellow)
[2022-12-18 06:42] LABS: BACTERIA 2+
[2022-12-18 06:43] LABS: RBC TNTC rbc/hpf (0-2)
[2022-12-18 15:04] VITALS: BP 117/68
== END 2022-12-18 18:42 | disposition left against medical advice (07) ==
LOC: ED 04:48
PROVIDERS: Emergency Medicine
DX: N30.91 Cystitis, unspecified with hematuria (principal); K68.19 Other retroperitoneal abscess; R10.2 Pelvic and perineal pain; M46.20 Osteomyelitis of vertebra, site unspecified; G43.909 Migraine, unspecified, not intractable, without status migrainosus; Z88.0 Allergy status to penicillin; Z98.890 Other specified postprocedural states; Z90.49 Acquired absence of other specified parts of digestive tract; Z98.51 Tubal ligation status; Z87.891 Personal history of nicotine dependence; Z87.442 Personal history of urinary calculi

== ENCOUNTER 2022-12-19 14:43 | Emergency (ER) | payer OTHER ==
[~2022-12-19] VITALS: Ht 160 cm; Wt 56.7 kg
[~2022-12-19 14:43] MED LIST changes: +DULOXETINE HCL30 MG PO; +KEFLEX 500 MG E2 CAP PO; +MYRBETRIQ50 M1 PO
[2022-12-19 15:13] LABS: BASO # 0.1 10*3/uL (0.0-0.1); EOS % 13.4 % (1.0-4.0); HEMATOCRIT 38.7 % (37.0-47.0); LYMPH # 1.5 10*3/uL (1.3-4.4); LYMPH % 19.7 % (27.0-41.0); MEAN CELL VOLUME 83.6 fl (81.0-99.0); MEAN CORPUSCULAR HGB 27.6 pg (27.0-31.0); MEAN CORPUSCULAR HGB CONC 33.1 g/dl (33.0-37.0); MEAN PLATELET VOLUME 8.6 fl (9.6-12.3); MONO # 0.5 10*3/uL (0.1-1.0); NEUT # 4.6 10*3/uL (2.3-7.9); NEUT % 58.6 % (47.0-73.0); PLATELET COUNT AUTOMATED 466 10*3/uL (130-400); RED BLOOD COUNT 4.63 10*6/uL (4.10-5.10); RED CELL DISTRI WIDTH 14.8 % (0-14.5); WHITE BLOOD COUNT 7.8 10*3/uL (4.8-10.8)
[2022-12-19 15:28] LABS: ALKALINE PHOSPHATASE 148 U/L (46-116); CHLORIDE 108 mmol/L (98-107); POTASSIUM 3.4 mmol/L (3.4-5.1); SGPT/ALT 32 U/L (10-49); TOTAL PROTEIN 7.2 gm/dL (6.0-8.0)
[2022-12-19 16:14] LABS: BUN 8 mg/dl (9-23)
[2022-12-22 16:03] VITALS: BP 102/76
== END 2022-12-22 23:44 | disposition short-term general hospital (02) ==
LOC: ED 14:43
PROVIDERS: Emergency Medicine
DX: M46.26 Osteomyelitis of vertebra, lumbar region (principal); K68.19 Other retroperitoneal abscess; G43.909 Migraine, unspecified, not intractable, without status migrainosus; Z87.442 Personal history of urinary calculi; Z98.890 Other specified postprocedural states; Z90.49 Acquired absence of other specified parts of digestive tract; Z98.51 Tubal ligation status; Z72.0 Tobacco use

== ENCOUNTER 2023-01-17 08:14 | Emergency (ER) | payer OTHER ==
[~2023-01-17] VITALS: Ht 160 cm; Wt 56.7 kg
[2023-01-17 08:16] VITALS: BP 140/82
[2023-01-17 09:02] LABS: BASO # 0.1 10*3/uL (0.0-0.1); BASO % 1.1 % (0.0-1.0); EOS # 1.4 10*3/uL (0.0-0.4); EOS % 15.5 % (1.0-4.0); HEMATOCRIT 34.7 % (37.0-47.0); LYMPH # 1.4 10*3/uL (1.3-4.4); LYMPH % 15.7 % (27.0-41.0); MEAN CELL VOLUME 83.8 fl (81.0-99.0); MEAN CORPUSCULAR HGB 27.1 pg (27.0-31.0); MEAN CORPUSCULAR HGB CONC 32.3 g/dl (33.0-37.0); MEAN PLATELET VOLUME 8.8 fl (9.6-12.3); MONO # 0.8 10*3/uL (0.1-1.0); MONO % 8.6 % (3.0-9.0); NEUT # 5.1 10*3/uL (2.3-7.9); NEUT % 58.8 % (47.0-73.0); PLATELET COUNT AUTOMATED 415 10*3/uL (130-400); RED BLOOD COUNT 4.14 10*6/uL (4.10-5.10); RED CELL DISTRI WIDTH 15.4 % (0-14.5); WHITE BLOOD COUNT 8.7 10*3/uL (4.8-10.8)
[2023-01-17 09:25] LABS: ALKALINE PHOSPHATASE 101 U/L (46-116); BUN 5 mg/dl (9-23); CHLORIDE 103 mmol/L (98-107); POTASSIUM 3.8 mmol/L (3.4-5.1); SGPT/ALT 7 U/L (10-49); TOTAL PROTEIN 7.5 gm/dL (6.0-8.0)
[2023-01-17] MEDS ORDERED: PERCOCET 5-3251 EACH PO (10:12)
[2023-01-17] MEDS ORDERED: ONDANSETRON HYDR4 M1 PO (10:12)
== END 2023-01-17 10:24 | disposition home or self-care (01) ==
LOC: ED 08:14
PROVIDERS: Family Medicine
DX: M86.9 Osteomyelitis, unspecified (principal); M54.6 Pain in thoracic spine; G43.909 Migraine, unspecified, not intractable, without status migrainosus; Z87.442 Personal history of urinary calculi; Z90.49 Acquired absence of other specified parts of digestive tract; Z98.51 Tubal ligation status; Z72.0 Tobacco use

== ENCOUNTER 2023-03-23 15:06 | Emergency (ER) | payer OTHER ==
[~2023-03-23] VITALS: Ht 160 cm; Wt 54.0 kg
[~2023-03-23 15:06] MED LIST changes: +CYMBALTA20 M1 PO; +NEURONTIN600 MG PO; +ONDANSETRON HYDR4 M1 PO; +PERCOCET 5-3251 EACH PO
[2023-03-23 15:26] VITALS: BP 129/83
== END 2023-03-23 18:19 | disposition home or self-care (01) ==
LOC: ED 15:06
DX: M79.605 Pain in left leg (principal); G43.909 Migraine, unspecified, not intractable, without status migrainosus; Z87.442 Personal history of urinary calculi; Z90.49 Acquired absence of other specified parts of digestive tract; Z98.51 Tubal ligation status; F17.200 Nicotine dependence, unspecified, uncomplicated

== ENCOUNTER 2023-04-15 10:25 | Emergency (ER) | payer OTHER ==
[~2023-04-15] VITALS: Ht 160 cm; Wt 54.0 kg
[2023-04-15 10:37] VITALS: BP 123/68
[2023-04-15] MEDS ORDERED: LASIX20 MG PO (12:23)
[2023-04-15] MEDS ORDERED: PREDNISONE20 M1 PO (12:23)
== END 2023-04-15 12:45 | disposition home or self-care (01) ==
LOC: ED 10:25
DX: M79.672 Pain in left foot (principal); Z90.49 Acquired absence of other specified parts of digestive tract; Z98.51 Tubal ligation status

== ENCOUNTER 2023-05-12 11:58 | Emergency (ER) | payer OTHER ==
[~2023-05-12] VITALS: Ht 160 cm; Wt 54.0 kg
[~2023-05-12 11:58] MED LIST changes: +LASIX20 MG PO
[2023-05-12 12:00] VITALS: BP 136/78
[2023-05-12 12:53] LABS: BASO # 0.1 10*3/uL (0.0-0.1); BASO % 0.8 % (0.0-1.0); EOS # 1.3 10*3/uL (0.0-0.4); HEMATOCRIT 29.3 % (37.0-47.0); LYMPH # 1.5 10*3/uL (1.3-4.4); LYMPH % 12.8 % (27.0-41.0); MEAN CELL VOLUME 73.8 fl (81.0-99.0); MEAN CORPUSCULAR HGB 23.7 pg (27.0-31.0); MEAN CORPUSCULAR HGB CONC 32.1 g/dl (33.0-37.0); MEAN PLATELET VOLUME 8.4 fl (9.6-12.3); MONO # 0.8 10*3/uL (0.1-1.0); MONO % 6.6 % (3.0-9.0); NEUT # 8.1 10*3/uL (2.3-7.9); NEUT % 68.5 % (47.0-73.0); PLATELET COUNT AUTOMATED 561 10*3/uL (130-400); RED BLOOD COUNT 3.97 10*6/uL (4.10-5.10); RED CELL DISTRI WIDTH 18.5 % (0-14.5); WHITE BLOOD COUNT 11.8 10*3/uL (4.8-10.8)
[2023-05-12 13:18] LABS: ALKALINE PHOSPHATASE 107 U/L (46-116); BUN 8 mg/dl (9-23); CHLORIDE 102 mmol/L (98-107); POTASSIUM 2.7 mmol/L (3.4-5.1); SGPT/ALT < 7 U/L (10-49); TOTAL PROTEIN 7.2 gm/dL (6.0-8.0)
[2023-05-12 15:10] LABS: BILIRUBIN Negative (Negative); BLOOD 3+ (Negative); CLARITY Turbid (Clear); COLOR Yellow (Yellow); GLUCOSE Negative (Negative); KETONE Negative (Negative); LEUKO ESTERASE 3+ (Negative); NITRITE Positive (Negative)
[2023-05-12 15:25] LABS: BACTERIA 4+; RBC TNTC rbc/hpf (0-2); WBC TNTC wbc/hpf (0-5)
[2023-05-12] MEDS ORDERED: K-TAB10 MEQ PO (16:07)
[2023-05-12] MEDS ORDERED: OMNICEF300 MG PO (16:07)
== END 2023-05-12 17:27 | disposition home or self-care (01) ==
LOC: ED 11:58
PROVIDERS: Internal Medicine
DX: N39.0 Urinary tract infection, site not specified (principal); R11.2 Nausea with vomiting, unspecified; G43.909 Migraine, unspecified, not intractable, without status migrainosus; Z87.442 Personal history of urinary calculi; Z98.51 Tubal ligation status; F17.200 Nicotine dependence, unspecified, uncomplicated; Z90.49 Acquired absence of other specified parts of digestive tract

== ENCOUNTER 2023-06-01 15:19 | Emergency (ER) | payer OTHER ==
[~2023-06-01] VITALS: Ht 160 cm; Wt 54.0 kg
[~2023-06-01 15:19] MED LIST changes: +K-TAB10 MEQ PO; +OMNICEF300 MG PO
[2023-06-01 15:25] VITALS: BP 110/67
[2023-06-01 16:17] LABS: BASO # 0.1 10*3/uL (0.0-0.1); EOS % 9.3 % (1.0-4.0); HEMATOCRIT 28.4 % (37.0-47.0); LYMPH # 0.9 10*3/uL (1.3-4.4); LYMPH % 8.5 % (27.0-41.0); MEAN CELL VOLUME 77.2 fl (81.0-99.0); MEAN CORPUSCULAR HGB 22.8 pg (27.0-31.0); MEAN CORPUSCULAR HGB CONC 29.6 g/dl (33.0-37.0); MEAN PLATELET VOLUME 8.3 fl (9.6-12.3); MONO # 0.8 10*3/uL (0.1-1.0); MONO % 7.3 % (3.0-9.0); NEUT # 7.7 10*3/uL (2.3-7.9); NEUT % 73.6 % (47.0-73.0); PLATELET COUNT AUTOMATED 465 10*3/uL (130-400); RED BLOOD COUNT 3.68 10*6/uL (4.10-5.10); RED CELL DISTRI WIDTH 20.8 % (0-14.5); WHITE BLOOD COUNT 10.5 10*3/uL (4.8-10.8)
[2023-06-01 16:29] LABS: ACT PARTIAL THROMBO TIME 31.2 SECONDS (20.0-32.1); INTERNATIONAL NORM RATIO 1.1 (2.0-3.5)
[2023-06-01 16:39] LABS: ALKALINE PHOSPHATASE 123 U/L (46-116); BUN 7 mg/dl (9-23); CHLORIDE 107 mmol/L (98-107); LIPASE 21 U/L (12-53); POTASSIUM 3.7 mmol/L (3.4-5.1); TOTAL PROTEIN 6.4 gm/dL (6.0-8.0)
[2023-06-01 16:40] LABS: BETA-HCG, QUANT < 3.0 mIU/mL (3-10); SGPT/ALT < 7 U/L (10-49)
== END 2023-06-01 18:45 | disposition home or self-care (01) ==
LOC: ED 15:19
PROVIDERS: Emergency Medicine
DX: I82.402 Acute embolism and thrombosis of unspecified deep veins of left lower extremity (principal); G43.909 Migraine, unspecified, not intractable, without status migrainosus; Z87.442 Personal history of urinary calculi; Z90.49 Acquired absence of other specified parts of digestive tract; Z98.51 Tubal ligation status; F17.200 Nicotine dependence, unspecified, uncomplicated

== ENCOUNTER 2023-06-23 15:10 | Emergency (ER) | payer OTHER ==
[~2023-06-23] VITALS: Ht 162.5 cm; Wt 54.0 kg
[2023-06-23 16:01] LABS: HEMATOCRIT 28.2 % (37.0-47.0); MEAN CELL VOLUME 73.8 fl (81.0-99.0); MEAN CORPUSCULAR HGB 22.3 pg (27.0-31.0); MEAN CORPUSCULAR HGB CONC 30.1 g/dl (33.0-37.0); PLATELET COUNT AUTOMATED 498 10*3/uL (130-400); RED BLOOD COUNT 3.82 10*6/uL (4.10-5.10); RED CELL DISTRI WIDTH 19.6 % (0-14.5); WHITE BLOOD COUNT 13.8 10*3/uL (4.8-10.8)
[2023-06-23 16:14] LABS: ACT PARTIAL THROMBO TIME 34.7 SECONDS (20.0-32.1)
[2023-06-23 16:21] LABS: MANUAL DIFF REFLEX YES
[2023-06-23 16:24] LABS: ALKALINE PHOSPHATASE 138 U/L (46-116); BUN 8 mg/dl (9-23); CHLORIDE 98 mmol/L (98-107); LIPASE 25 U/L (12-53); POTASSIUM 2.9 mmol/L (3.4-5.1); TOTAL PROTEIN 6.4 gm/dL (6.0-8.0)
[2023-06-23 16:27] LABS: SGPT/ALT < 7 U/L (10-49)
[2023-06-23 16:37] LABS: TOTAL CELLS COUNTED 100 #CELLS
[2023-06-23 16:40] LABS: PLATELET SUFFICIENCY NORMAL (NORMAL)
[2023-06-23 23:04] VITALS: BP 101/45
== END 2023-06-23 23:17 | disposition short-term general hospital (02) ==
LOC: ED 15:10
PROVIDERS: Physician Assistant Medical
DX: I82.412 Acute embolism and thrombosis of left femoral vein (principal); I26.99 Other pulmonary embolism without acute cor pulmonale; R31.9 Hematuria, unspecified; M54.50 Low back pain, unspecified; Z90.49 Acquired absence of other specified parts of digestive tract; Z98.51 Tubal ligation status; F17.200 Nicotine dependence, unspecified, uncomplicated